=== PATIENT | female | born 1945 | race Caucasian/White ===

== ENCOUNTER → 2021-01-20 | Outpatient (CLI) | payer OTHER, MEDICARE ==
--- NOTE | 2021-01-20 16:38 | RAD ---
Site ID: [id number] EXAMINATION: XR EXAM OF ANKLE_LEFT 3V. HISTORY: 75 years Female Reason: LEFT LATERAL ANKLE PAIN. COMPARISON: None. FINDINGS: No fracture, dislocation or radiopaque foreign body. The joint spaces and articular surfaces appea r unremarkable. Inferior calcaneal spur is seen. Tiny osseous fragment is seen projecting under the l ateral malleolus on the frontal projection, not seen on other views. This could relate to previous in jury. IMPRESSION: No acute process. Electronically signed by: Maikol Narayanan MD (01/20/2021 4:36 PM) [id number]
== END ==
LOC: RAD 14:17
PROVIDERS: ATTEND Family Medicine
DX: M77.32 Calcaneal spur, left foot (principal); Z18.89 Other specified retained foreign body fragments
CPT/HCPCS: 73610

== ENCOUNTER → 2021-01-27 | Outpatient (CLI) | payer OTHER, MEDICARE ==
[2021-01-27 17:56] LABS: ALBUMIN 3.5 g/dL (3.4-5.0); ALBUMIN/GLOBULIN RATIO 1.1 (1.0-1.7); CALCIUM 8.3 mg/dL (8.5-10.1); CREATININE 0.6 mg/dL (0.6-1.0); GFR 97.7; POTASSIUM 3.6 mmol/L (3.5-5.1); TOTAL BILIRUBIN 0.8 mg/dL (0.2-1.0); TOTAL PROTEIN 6.6 g/dL (6.4-8.2)
[2021-01-27 18:06] LABS: CHOLESTEROL/HDL RATIO 2.3
== END ==
LOC: LAB 14:26
PROVIDERS: ATTEND Family Medicine
DX: Z13.220 Encounter for screening for lipoid disorders (principal); Z13.1 Encounter for screening for diabetes mellitus
CPT/HCPCS: 36415; 80053; 80061

== ENCOUNTER → 2021-03-18 | Outpatient (CLI) | payer OTHER, MEDICARE ==
--- NOTE | 2021-03-18 13:56 | KCIC ---
EXAM: DUAL ENERGY X-RAY ABSORPTIOMETRY (DEXA). HISTORY: Postmenopausal screening. FINDINGS: The lowest measured T-score is -1.2 in the left hip, based on a bone mineral density of 0.8 01 g/cm^2. Refer to the worksheets for full detail. No comparison examinations are available. IMPRESSION: 1. Low bone mass. Bone mineral density yields a T-score between -1.0 and -2.5. Fracture risk is incre ased. 2. FRAX report: Not calculated. METHODOLOGY: Dual energy x-ray absorptiometry was performed to measure bone mineral density. The foll owing analysis is based on the 2019 Official Positions of the International Society for Clinical Dens itometry: Measurements of the hips and the average of L1-L4 are preferred. When the spine and/or hip cannot be feasibly measured or interpreted, or in the setting of hyperparathyroidism, distal radial bone minera l density may be measured. The lumbar spine T-score is based on the average bone mineral density of L1-L4. In the setting of art ifact or anatomic abnormality, some lumbar levels may be excluded, and the remaining levels used for calculation. A single lumbar level is not used for diagnosis, and if only a single level is available for assessment, another anatomic site will be used to assign a diagnosis. The hip T-score is based on the bone mineral density measurement of the femoral neck or total proxima l femur of either side, whichever is lowest. Bilateral mean values are not used for diagnosis. The forearm T-score is derived from 33% of the distal radius of the nondominant forearm. Electronically signed by: Lyndsey Hernández MD (03/18/2021 1:54 PM) [id number]
--- NOTE | 2021-03-18 16:38 | KCIC ---
Bilateral digital screening mammograms with 3-D tomosynthesis: Reason for examination: Routine screening. No previous exams available for comparison. New baseline. Bilateral mammograms in CC and oblique projections were obtained with 2-D imaging and 3-D tomosynthes is imaging on a Siemens Inspiration unit and reviewed on the workstation. Interpretation was made wit h the benefit of CAD. The skin and nipples show no abnormalities. No abnormal axillary lymph nodes are seen. The breast par enchyma is heterogeneously dense. (Breast density: Category C.) There is marked parenchymal asymmetry present in the right breast anteriorly as well as a 1.2 cm nodular density posteriorly at the 10:00 C position. Further evaluation with ultrasound is recommended. No suspicious calcifications are seen. Impression: Marked parenchymal asymmetry anteriorly in the right breast as well as a 1.2 cm nodular density poste riorly at the 10:00 C position of the right breast. Recommend further evaluation with ultrasound. Your patient's mammogram demonstrates that she has dense breast tissue (breast density category C or D), which could hide abnormalities, and if she has other risk factors for breast cancer that have bee n identified, she might benefit from supplemental screening tests that may be suggested by you as her ordering physician. Dense breast tissue, in and of itself, is a relatively common condition. Therefo re, this information is not provided to cause undue concern, but rather to raise your awareness and t o promote discussion with your patient regarding the presence of other risk factors, in addition to d ense breast tissue. Your patient's mammography results will be sent to her. BI-RAD Category 0: Incomplete. Needs additional imaging evaluation. "Our facility is accredited by the [employer] Mammography Program." This patient's information has been entered into a reminder system for the patient to be notified wit h the results of her examination and a target date for the next mammogram. Electronically signed by: Haritha Galeano MD (03/18/2021 4:35 PM) [id number]
== END ==
LOC: KCIC MAMMO 12:37
PROVIDERS: ATTEND Family Medicine
DX: Z12.31 Encounter for screening mammogram for malignant neoplasm of breast (principal); M85.88 Other specified disorders of bone density and structure, other site; Z78.0 Asymptomatic menopausal state
CPT/HCPCS: 77063; 77067; 77080

== ENCOUNTER → 2021-04-02 | Outpatient (CLI) | payer OTHER, MEDICARE ==
--- NOTE | 2021-04-02 15:27 | KCIC ---
Right breast ultrasound: Reason for examination: Parenchymal asymmetry on screening. Comparison is made to mammographic exam dated 03/18/2021. Ultrasound examination of the right breast and axilla was performed. There is dense fibroglandular tissue anteriorly in the right breast without a focal cystic or solid n odule evident. No focal nodules are seen posteriorly at the 10:00 C position in the area of nodularit y probably represent some superimposed tissues. No abnormal appearing lymph nodes are seen in the rig ht axilla. IMPRESSION: No suspicious abnormalities evident in the right breast and axilla. Recommend routine mammographic fo llow-up. BI-RADS Category 2: Benign. "Our facility is accredited by the [employer] Mammography Program." Electronically signed by: Haritha Galeano MD (04/02/2021 3:25 PM) [id number]
== END ==
LOC: KCIC US 13:58
PROVIDERS: ATTEND Family Medicine
DX: R92.8 Other abnormal and inconclusive findings on diagnostic imaging of breast (principal)
CPT/HCPCS: 76641

== ENCOUNTER → 2021-06-25 | Outpatient (CLI) | payer OTHER, MEDICARE ==
--- NOTE | 2021-06-25 14:34 | KCIC ---
EXAM: Lumbar spine MRI without contrast. HISTORY: Left-sided sciatica. Bilateral lower extremity numbness. TECHNIQUE: Multiplanar, multisequence magnetic resonance imaging of the lumbar spine was performed wi thout contrast. COMPARISON: None. FINDINGS: There is S-shaped scoliosis. There is 7 mm grade 1 anterolisthesis of L4 on L5. There is 3 mm retrolisthesis of L5 on S1. There is 2 mm retrolisthesis of L2 on L3. There is multilevel endplate remodeling, disc space narrowing, osteophytosis and Schmorl's node formation. There is multilevel di sc desiccation. There are multiple osseous hemangiomas. There is no suspicious osseous lesion. There is no acute or subacute fracture. The conus terminates at L1. There are multiple simple renal and hepatic cysts. Follow-up is not routinely performed for simple cy sts. There is sigmoid diverticulosis. At T9-T10, there is a posterior central disc protrusion superimposed on a disc bulge and endplate rem odeling. There is mild bilateral facet arthropathy. There is mild bilateral foraminal stenosis. There is deformation of the spinal cord without significant central canal stenosis. At T10-T11, there is a posterior central disc protrusion superimposed on a disc bulge and endplate os teophytosis. There is mild bilateral facet arthropathy. There is mild right foraminal stenosis. At T11-T12, there is a disc bulge and endplate osteophytosis. There is mild bilateral foraminal steno sis. At T12-L1, there is a left paracentral to lateral recess disc protrusion superimposed on a disc bulge and endplate osteophytosis. There is mild left facet arthropathy. There is moderate left foraminal s tenosis. There is narrowing of the left lateral recess. At L1-L2, there is a disc bulge and endplate osteophytosis. There is moderate bilateral facet arthrop athy. There is hypertrophy of the ligamentum flavum. There is mild to moderate bilateral foraminal st enosis. There is mild to moderate central canal stenosis. At L2-L3, there is a disc bulge and endplate osteophytosis. There is moderate right greater than left facet arthropathy. There is hypertrophy of the ligamentum flavum. There is mild to moderate bilatera l foraminal stenosis. There is moderate central canal stenosis. At L3-L4, there is a disc bulge and endplate osteophytosis. There is severe right and moderate left f acet arthropathy. There is hypertrophy of the ligamentum flavum. There is mild right and moderate lef t foraminal stenosis. There is severe central canal stenosis. At L4-L5, there is a disc bulge and endplate osteophytosis. There is severe bilateral facet arthropat hy. There is hypertrophy of the ligamentum flavum. There is grade 1 anterolisthesis. There is severe right greater than left foraminal stenosis. There is severe central canal stenosis. At L5-S1, there is a disc bulge and endplate osteophytosis. There is severe bilateral facet arthropat hy. There is severe bilateral foraminal stenosis. There is severe central canal stenosis. IMPRESSION: 1. 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 This results in severe stenosis at multiple levels. 2. Lumbar scoliosis and multilevel listhesis, predominantly at L4-L5. Electronically signed by: Lyndsey Hernández MD (06/25/2021 2:32 PM) [facility]
== END ==
LOC: KCIC MRI 13:01
PROVIDERS: ATTEND Family Medicine
DX: M47.816 Spondylosis without myelopathy or radiculopathy, lumbar region (principal); M47.814 Spondylosis without myelopathy or radiculopathy, thoracic region; M51.27 Other intervertebral disc displacement, lumbosacral region; M48.8X7 Other specified spondylopathies, lumbosacral region; M48.07 Spinal stenosis, lumbosacral region; M51.25 Other intervertebral disc displacement, thoracolumbar region; M48.8X5 Other specified spondylopathies, thoracolumbar region; M48.05 Spinal stenosis, thoracolumbar region; M43.17 Spondylolisthesis, lumbosacral region; M41.86 Other forms of scoliosis, lumbar region; M51.46 Schmorl's nodes, lumbar region; M54.42 Lumbago with sciatica, left side
CPT/HCPCS: 72148